=== PATIENT | male | born 1950 | race Asian ===

== ENCOUNTER → 2020-08-14 16:42 | Outpatient (CLI) | payer MEDICARE, MEDICAID, SELFPAY ==
--- NOTE | 2020-08-14 16:50 | DI.MRI.S_ITS ---
PROCEDURE: MR WRIST LT WO CON INDICATIONS: PAIN IN WRIST TECHNIQUE: Noncontrast coronal proton density fast spin echo and T2 fast spin echo with fat saturation; coronal 3-D gradient echo, axial T1 spin echo and T2 fast spin echo with fat saturation, sagittal T1 spin echo through the wrist. COMPARISON: None. FINDINGS: Image quality: Excellent. Bones and cartilage: Extensive marrow edema involving 4th metacarpal base with subtle linear hypointense signal extending to medial cortex is seen suggestive of a nondisplaced fracture. There is also marrow edema in adjacent hamate , distal portion of scaphoid, and dorsal aspect of distal triquetrum. Subtle linear hypointense signal within hamate is seen. No other area of abnormal marrow signal is noted. No displaced fracture or dislocation. No evidence of osteonecrosis. Osteoarthritic changes are noted throughout wrist joints particularly involving 1st CMC joint and scaphoid trapezial joint with subcortical cyst formation. No suspicious intraosseous lesion. Carpal ligaments: The scapholunate and lunotriquetral ligaments appear intact. In the absence of intra-articular contrast, the extrinsic carpal ligaments are not well identified. On sagittal images, the pisohamate ligament appears intact. Triangular fibrocartilage complex: Subtle signal abnormality involving triangular fibrocartilage near its ulnar insertion is seen concerning for focal perforation of TFCC. The adjacent meniscal homolog appears normal in the absence of intra-articular contrast. The extensor carpi ulnaris tendon is normal in location and morphology. Tendons and soft tissues: The carpal tunnel structures appear normal, including the median nerve. The ulnar nerve appears normal within Guyon's canal. All six extensor tendon compartments demonstrate normal morphology, without pathologic tendon sheath fluid. No soft tissue ganglion cysts. IMPRESSION: 1. Nondisplaced fractures involving proximal shaft/base of 4th metacarpal bone as well as adjacent hamate. Likely bony contusion involving dorsal aspect of capitate and triquetrum without definite fracture line. 2. 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 No evidence of osteonecrosis. 3. Intrinsic and extrinsic wrist ligaments are grossly intact. Extensor and flexor tendons are grossly intact. 4. Subtle signal abnormality involving triangular fibrocartilage near its ulnar insertion concerning for focal perforation with trace amount of fluid seen within distal radial ulnar joint. Dictated by: Antony Mata M.D. on 08/15/2020 at 11:11 Approved by: Antony Mata M.D. on 08/15/2020 at 11:53
== END ==
PROVIDERS: Referring Provider Counselor Mental Health; Visit Provider Counselor Mental Health
DX: M25.532 Pain in left wrist (principal); S62.355A Nondisplaced fracture of shaft of fourth metacarpal bone, left hand, initial encounter for closed fracture; S62.145A Nondisplaced fracture of body of hamate [unciform] bone, left wrist, initial encounter for closed fracture; X58.XXXA Exposure to other specified factors, initial encounter
CPT/HCPCS: 73221